=== PATIENT | female | born 1940 | race African-American/Black ===

== ENCOUNTER 2016-11-24 04:38 | Inpatient (IN) | payer MEDICARE, MEDICAID ==
[~2016-11-24] VITALS: Ht 165.1 cm; Wt 101.2 kg
[2016-11-24] VITALS (34 sets, daily range): BP systolic 92–199; BP diastolic 42–179
[~2016-11-24 04:38] MED LIST: ALBU18HF2 IH; ANAS1TAB7 PO; DILT300C25; DILT300C25 PO; FURO-152 PO; FURO20TA4 PO; GLIP10TA10; GLIP10TA10 PO; HYDR-4005 PO; IPRA12.94 INH; ISOS30TA11; LOSA25TA12; METF10002; METF10002 PO; METO100T9; NITR0.4T SL; NITR0.4T3 SL; PRAV20TA57 PO; RIVA1PAT2 TD; RIVA20TA PO; SENN-22 PO; SENN-39 PO
[2016-11-24 05:45] LABS: HEMATOCRIT. 44.8 % (36.0-48.0); HEMOGLOBIN. 14.3 g/dL (12.0-16.0); MEAN CORPUSCULAR HEMOGLOBIN 26.3 pg (28.0-32.0); MEAN CORPUSCULAR HGB CONC 31.8 g/dL (31.0-37.0); MEAN CORPUSCULAR VOLUME 82.7 fL (81.0-99.0); MEAN PLATELET VOLUME 9.2 fl (7.4-10.4); PLATELET 203 x1000/uL (130-400); RED BLOOD CELL COUNT 5.42 mill/uL (4.2-5.4); RED CELL DISTRIBUTION WIDTH 16.3 % (11.6-14.6)
[2016-11-24 05:47] LABS: DIFFERENTIAL COMMENT 1
[2016-11-24 05:53] LABS: INR 1.5; PROTHROMBIN TIME 15.2 sec
[2016-11-24 06:09] LABS: ALANINE AMINOTRANSFERASE 22 IU/L (13-61); ALBUMIN 3.7 g/dL (3.4-5.0); ANION GAP 19; CALCIUM 9.5 mg/dL (8.5-10.1); CARBON DIOXIDE 22 mEq/L (21-32); CHLORIDE 97 mEq/L (98-107); CREATINE KINASE 659 IU/L (26-192); INDEX HEMOLYSI 1 (1-3); INDEX ICTERIC 1 (1-4); INDEX LIPEMIC 1 (1-3); LACTIC ACID 3.6 mmol/L (0.4-2.0); UREA NITROGEN BLOOD 13 mg/dL (7-21); eGFR > 60 mL/min (>60)
[2016-11-24 06:52] LABS: AMMONIA < 10 uMol/L (<32); INDEX HEMOLYSI 1 (1-3)
[2016-11-24] MEDS ORDERED: VANCOMYCIN 1 G PREMIX 200 ML IV SCH (07:00)
[2016-11-24] MEDS ORDERED: PIPERACILLIN/TAZ 3.375G PREMIX 50 ML IV ONE (07:00)
[2016-11-24 07:15] LABS: PLATELET ESTIMATE NORMAL
[2016-11-24] MEDS ORDERED: SODIUM CHLORIDE 0.9% 1000ML BAG (SEPSIS BOLUS) IV ONE (07:30)
[2016-11-24] MEDS ORDERED: HEPARIN 25,000 UNITS PREMIX 500 ML IV PRN (07:30)
[2016-11-24] MEDS ORDERED: HEPARIN 5000 UNITS/ML VIAL IV SCH (07:30)
[2016-11-24 08:30] LABS: CLARITY URINE CLOUDY (CLEAR); COLOR URINE DARK YELLOW (YELLOW); GLUCOSE URINE NEGATIVE (NEGATIVE); KETONES URINE 1+ (NEGATIVE); LEUKOCYTE ESTERASE URINE 2+ (NEGATIVE); NITRITE URINE NEGATIVE (NEGATIVE); OCCULT BLOOD URINE 3+ (NEGATIVE); PH URINE 5.5 (4.5-8.0); PROTEIN URINE 1+ (NEGATIVE); SPECIFIC GRAVITY URINE 1.029 (1.005-1.030)
[2016-11-24 08:55] LABS: BACTERIA URINE 4+; SQUAMOUS EPITHELIAL CELL URINE RARE /lpf (RARE/1+); WBC URINE TNTC /hpf (0-2)
[2016-11-24 08:56] LABS: RBC URINE 15-25 /hpf (0-2)
[2016-11-24] MEDS ORDERED: CLONIDINE 0.1MG TABLET PO PRN ×2 (10:00→13:35)
[2016-11-24] MEDS ORDERED: NITROGLYCERIN OINT 1GM/INCH UDPKT TD STA (10:23)
[2016-11-24] MEDS ORDERED: HALOPERIDOL LACTATE 5MG/ML VIAL IM ONE (10:30)
[2016-11-24] MEDS ORDERED: FUROSEMIDE 40MG/4ML VIAL IVP ONE (10:30)
[2016-11-24] MEDS ORDERED: DILTIAZEM HCL 30MG TABLET PO SCH (12:00)
[2016-11-24] MEDS ORDERED: FUROSEMIDE 40MG/4ML VIAL IVP SCH (13:15)
[2016-11-24] MEDS ORDERED: DILTIAZEM HCL 5MG/ML 5ML VIAL IV NR (13:15)
[2016-11-24] MEDS ORDERED: FUROSEMIDE 40MG/4ML VIAL IVP NR (13:15)
[2016-11-24 13:31] LABS: BG BASE EXCESS -7.4 mmol/L (-2.0-2.0); BG CARBOXYHEMOGLOBIN 0.5 % (0.5-1.5); BG DEOXYHEMOGLOBIN 0.5 % (0.0-5.0); BG HCO3 ACT 18.1 mmol/L (22.0-26.0); BG METHEMOGLOBIN 0.3 % (0.0-1.5); BG OXYGEN SATURATION 99.5 % (92.0-98.5); BG OXYHEMOGLOBIN 98.7 % (94.0-97.0); BG PCO2 37.2 mmHg (35.0-45.0); BG PH 7.306 (7.350-7.450); BG PO2 226.5 mmHg (75.0-100.0); BG SAMPLE SITE RIGHT RADIAL; BG TOTAL HEMOGLOBIN 14.7 g/dL (12.0-18.0); BG VENT MODE MASK - NRB
[2016-11-24] MEDS ORDERED: POTASSIUM CHLORIDE 20 MEQ/PACKET PO SCH (13:35)
[2016-11-24] MEDS: NITROGLYCERIN OINT 1GM/INCH UDPKT TD SCH ×3 (13:39→21:39)
[2016-11-24] MEDS ORDERED: MAGNESIUM/ALUMINUM HYDROXIDE/SIMETHICONE 30ML UDC PO PRN (14:00)
[2016-11-24] MEDS ORDERED: GUAIFENESIN 200MG/10ML SUGAR FREE UDC PO PRN (14:00)
[2016-11-24] MEDS ORDERED: ACETAMINOPHEN 325MG TABLET PO PRN (14:00)
[2016-11-24] MEDS ORDERED: DIPHENHYDRAMINE 50MG/ML VIAL IV PRN (14:00)
[2016-11-24] MEDS ORDERED: DOCUSATE SODIUM 100MG CAPSULE PO PRN (14:00)
[2016-11-24] MEDS ORDERED: ONDANSETRON HCL 4MG/2ML VIAL IV PRN (14:00)
[2016-11-24 14:36] LABS: *AMPHETAMINES SCREEN URINE NEGATIVE (NEGATIVE); *BARBITURATES SCREEN URINE NEGATIVE (NEGATIVE); *BENZODIAZEPINES SCREEN URINE NEGATIVE (NEGATIVE); *COCAINE SCREEN URINE NEGATIVE (NEGATIVE); CANNABINOID URINE SCREEN NEGATIVE (NEGATIVE); ECSTASY MDMA SCREEN URINE NEGATIVE (NEGATIVE); METHADONE URINE SCREEN NEGATIVE (NEGATIVE); OPIATES URINE SCREEN PRESUMTIVE POSITIVE (NEGATIVE); PHENCYCLIDINE URINE SCREEN NEGATIVE (NEGATIVE)
[2016-11-24] MEDS: DILTIAZEM HCL 125 MG in DEXT 5% WATER 100 ML IV PRN (14:36)
[2016-11-24 14:46] LABS: CREATINE KINASE MB FRACTION 190.1 ng/mL (0.5-3.6)
[2016-11-24] MEDS: FUROSEMIDE 40MG/4ML VIAL IVP SCH (17:05)
[2016-11-24] MEDS: ENOXAPARIN 100MG/ML SYR SUBCUT SCH (17:05)
[2016-11-24] MEDS: ASPIRIN 81MG EC TABLET PO SCH (17:05)
[2016-11-24] MEDS: LEVOFLOXACIN 500MG PREMIX 100 ML IV SCH (17:06)
[2016-11-24 17:08] LABS: BG BASE EXCESS -4.5 mmol/L (-2.0-2.0); BG BILEVEL POS AIRWAY PRESSURE 15/5; BG CARBOXYHEMOGLOBIN 0.6 % (0.5-1.5); BG DEOXYHEMOGLOBIN 1.8 % (0.0-5.0); BG HCO3 ACT 19.8 mmol/L (22.0-26.0); BG METHEMOGLOBIN 0.3 % (0.0-1.5); BG OXYGEN SATURATION 98.2 % (92.0-98.5); BG OXYHEMOGLOBIN 97.3 % (94.0-97.0); BG PCO2 34.4 mmHg (35.0-45.0); BG PH 7.378 (7.350-7.450); BG PO2 109.4 mmHg (75.0-100.0); BG SAMPLE SITE RIGHT RADIAL; BG TOTAL HEMOGLOBIN 14.6 g/dL (12.0-18.0); BG VENT MODE MASK - BIPAP; BG VENT RATE 20 set
[2016-11-24] MEDS ORDERED: ASPIRIN 81MG EC TABLET PO SCH (18:00)
[2016-11-24] MEDS ORDERED: DEXTROSE 50% WATER 50ML SYRINGE IV PRN ×2 (19:30)
[2016-11-24] MEDS: BLOOD SUGAR DIAGNOSTIC STRIP TEST SCH (21:36)
[2016-11-24] MEDS: INSULIN LISPRO 100 UNITS/ML SUBCUT SCH (21:41)
[2016-11-25] VITALS (61 sets, daily range): BP systolic 56–220; BP diastolic 18–155
[2016-11-25] MEDS: NITROGLYCERIN OINT 1GM/INCH UDPKT TD SCH ×4 (01:47→17:39)
[2016-11-25] MEDS: DILTIAZEM HCL 125 MG in DEXT 5% WATER 100 ML IV PRN (04:31)
[2016-11-25] MEDS: FUROSEMIDE 40MG/4ML VIAL IVP SCH ×2 (05:46→17:39)
[2016-11-25] MEDS: ENOXAPARIN 100MG/ML SYR SUBCUT SCH (05:48)
[2016-11-25 05:51] LABS: BASOPHILS % 0.3 % (0.0-2.0); HEMATOCRIT. 43.6 % (36.0-48.0); HEMOGLOBIN. 13.8 g/dL (12.0-16.0); LYMPHOCYTES % 10.9 % (20.0-50.0); MEAN CORPUSCULAR HEMOGLOBIN 26.1 pg (28.0-32.0); MEAN CORPUSCULAR HGB CONC 31.7 g/dL (31.0-37.0); MEAN CORPUSCULAR VOLUME 82.2 fL (81.0-99.0); MEAN PLATELET VOLUME 9.9 fl (7.4-10.4); MONOCYTES % 7.9 % (2.0-8.0); NEUTROPHILS % 80.9 % (40.0-76.0); PLATELET 182 x1000/uL (130-400); RED CELL DISTRIBUTION WIDTH 15.6 % (11.6-14.6); WHITE BLOOD COUNT 16.4 x1000/uL (4.5-11.0)
[2016-11-25 05:52] LABS: BG BASE EXCESS -2.9 mmol/L (-2.0-2.0); BG CARBOXYHEMOGLOBIN 0.8 % (0.5-1.5); BG DEOXYHEMOGLOBIN 3.9 % (0.0-5.0); BG FRACTION INSPIRED OXYGEN 36; BG HCO3 ACT 21.4 mmol/L (22.0-26.0); BG METHEMOGLOBIN 0.5 % (0.0-1.5); BG OXYHEMOGLOBIN 94.8 % (94.0-97.0); BG PH 7.391 (7.350-7.450); BG PO2 83.8 mmHg (75.0-100.0); BG SAMPLE SITE RIGHT RADIAL; BG VENT MODE NASAL CANNULA
[2016-11-25 06:19] LABS: ALANINE AMINOTRANSFERASE 33 IU/L (13-61); ALBUMIN 2.9 g/dL (3.4-5.0); ANION GAP 17; CALCIUM 8.6 mg/dL (8.5-10.1); CARBON DIOXIDE 23 mEq/L (21-32); CHLORIDE 100 mEq/L (98-107); CREATINE KINASE MB FRACTION 115.5 ng/mL (0.5-3.6); HDL CHOLESTEROL 64 mg/dL (40-59); INDEX HEMOLYSI 1 (1-3); INDEX ICTERIC 1 (1-4); INDEX LIPEMIC 1 (1-3); LDL CHOLESTEROL 106 mg/dL (5-100); NT PRO B-TYPE NATRIURETIC PEP 14003 pg/mL (5-125); TRIGLYCERIDE 97 mg/dL (0-150); UREA NITROGEN BLOOD 16 mg/dL (7-21); eGFR > 60 mL/min (>60)
[2016-11-25 06:27] LABS: CREATINE KINASE 1179 IU/L (26-192)
[2016-11-25 07:50] LABS: MAGNESIUM 1.1 mg/dL (1.8-2.4)
[2016-11-25] MEDS ORDERED: MAGNESIUM 4 G PREMIX 100 ML IV SCH (08:30)
[2016-11-25] MEDS: INSULIN LISPRO 100 UNITS/ML SUBCUT SCH ×4 (08:43→21:57)
[2016-11-25] MEDS: ASPIRIN 81MG EC TABLET PO SCH (08:44)
[2016-11-25] MEDS: BLOOD SUGAR DIAGNOSTIC STRIP TEST SCH ×4 (08:44→21:52)
[2016-11-25] MEDS ORDERED: LOSARTAN POTASSIUM 25 MG TABLET PO SCH (10:00)
[2016-11-25] MEDS: IPRATROPIUM/ALBUTEROL 0.5-3(2.5)MG/3ML NEB HHN SCH ×3 (12:00→20:02)
[2016-11-25] MEDS ORDERED: KCL 20MEQ/100ML PREMIX 100 ML IV NR (12:30)
[2016-11-25] MEDS: LEVOFLOXACIN 500MG PREMIX 100 ML IV SCH (15:43)
[2016-11-25] MEDS ORDERED: NYSTATIN POWDER 15GM TOP SCH (17:00)
[2016-11-25] MEDS: ATORVASTATIN CALCIUM 20MG TABLET PO SCH (20:45)
[2016-11-25] MEDS: CARVEDILOL 3.125 MG TABLET PO SCH (20:45)
[2016-11-25] MEDS: NYSTATIN POWDER 15GM TOP SCH (20:46)
[2016-11-26] VITALS (42 sets, daily range): BP systolic 99–138; BP diastolic 46–97
[2016-11-26] MEDS: IPRATROPIUM/ALBUTEROL 0.5-3(2.5)MG/3ML NEB HHN SCH ×6 (00:24→20:12)
[2016-11-26] MEDS: NITROGLYCERIN OINT 1GM/INCH UDPKT TD SCH ×3 (01:10→17:45)
[2016-11-26] MEDS: DILTIAZEM HCL 125 MG in DEXT 5% WATER 100 ML IV PRN ×2 (01:10→17:51)
[2016-11-26 05:35] LABS: INR 1.2; PROTHROMBIN TIME 12.8 sec
[2016-11-26 05:44] LABS: ALANINE AMINOTRANSFERASE 31 IU/L (13-61); ALBUMIN 2.6 g/dL (3.4-5.0); ANION GAP 15; CALCIUM 8.6 mg/dL (8.5-10.1); CARBON DIOXIDE 27 mEq/L (21-32); CHLORIDE 100 mEq/L (98-107); CREATINE KINASE 517 IU/L (26-192); CREATINE KINASE MB FRACTION 22.9 ng/mL (0.5-3.6); INDEX HEMOLYSI 1 (1-3); INDEX ICTERIC 1 (1-4); INDEX LIPEMIC 1 (1-3); NT PRO B-TYPE NATRIURETIC PEP 9130 pg/mL (5-125); UREA NITROGEN BLOOD 20 mg/dL (7-21); eGFR > 60 mL/min (>60)
[2016-11-26] MEDS: BLOOD SUGAR DIAGNOSTIC STRIP TEST SCH ×4 (08:19→20:58)
[2016-11-26] MEDS: ENOXAPARIN 100MG/ML SYR SUBCUT SCH (08:28)
[2016-11-26] MEDS: FUROSEMIDE 40MG/4ML VIAL IVP SCH ×2 (08:29→21:16)
[2016-11-26] MEDS: INSULIN LISPRO 100 UNITS/ML SUBCUT SCH ×4 (08:29→21:20)
[2016-11-26] MEDS: ASPIRIN 81MG EC TABLET PO SCH (08:30)
[2016-11-26] MEDS: CARVEDILOL 3.125 MG TABLET PO SCH ×2 (08:30→21:16)
[2016-11-26] MEDS: NYSTATIN POWDER 15GM TOP SCH ×2 (08:32→21:29)
[2016-11-26 09:14] LABS: HEMATOCRIT. 39.6 % (36.0-48.0); HEMOGLOBIN. 12.8 g/dL (12.0-16.0); MEAN CORPUSCULAR HEMOGLOBIN 26.3 pg (28.0-32.0); MEAN CORPUSCULAR HGB CONC 32.2 g/dL (31.0-37.0); MEAN CORPUSCULAR VOLUME 81.8 fL (81.0-99.0); MEAN PLATELET VOLUME 9.9 fl (7.4-10.4); PLATELET 190 x1000/uL (130-400); RED BLOOD CELL COUNT 4.85 mill/uL (4.2-5.4); RED CELL DISTRIBUTION WIDTH 15.9 % (11.6-14.6); WHITE BLOOD COUNT 17.4 x1000/uL (4.5-11.0)
[2016-11-26 09:18] LABS: DIFFERENTIAL COMMENT 1
[2016-11-26 09:43] LABS: PLATELET ESTIMATE NORMAL
[2016-11-26] MEDS ORDERED: LORAZEPAM 2MG/ML CPJ IV PRN (12:30)
[2016-11-26] MEDS: MEGESTROL ACETATE 400 MG/10 ML UDC PO SCH (12:41)
[2016-11-26] MEDS ORDERED: LORAZEPAM 0.5MG TABLET PO NR (12:45)
[2016-11-26] MEDS ORDERED: MIDAZOLAM HCL 5 MG/5 ML VIAL IV PRN (12:45)
[2016-11-26] MEDS ORDERED: CEPHALEXIN 500MG CAPSULE PO SCH (14:45)
[2016-11-26 15:24] LABS: CLARITY URINE CLEAR (CLEAR); COLOR URINE YELLOW (YELLOW); GLUCOSE URINE NEGATIVE (NEGATIVE); KETONES URINE NEGATIVE (NEGATIVE); LEUKOCYTE ESTERASE URINE TRACE (NEGATIVE); NITRITE URINE NEGATIVE (NEGATIVE); OCCULT BLOOD URINE 3+ (NEGATIVE); PH URINE 5.5 (4.5-8.0); PROTEIN URINE NEGATIVE (NEGATIVE); SPECIFIC GRAVITY URINE 1.012 (1.005-1.030); UROBILINOGEN URINE 0.2 E.U./dL (0.2-1.0)
[2016-11-26 16:40] LABS: BACTERIA URINE 1+; HYALINE CASTS URINE 0-5 /lpf; SQUAMOUS EPITHELIAL CELL URINE NONE SEEN /lpf (RARE/1+); WBC URINE 0-2 /hpf (0-2)
[2016-11-26] MEDS: CEFEPIME 1,000 MG in DEXTROSE 5% WATER 50 ML IV SCH (16:52)
[2016-11-26] MEDS: ATORVASTATIN CALCIUM 20MG TABLET PO SCH (21:16)
[2016-11-27] VITALS (47 sets, daily range): BP systolic 91–202; BP diastolic 39–133
[2016-11-27] MEDS: IPRATROPIUM/ALBUTEROL 0.5-3(2.5)MG/3ML NEB HHN SCH ×6 (00:14→19:56)
[2016-11-27] MEDS: NITROGLYCERIN OINT 1GM/INCH UDPKT TD SCH ×3 (01:52→18:22)
[2016-11-27] MEDS: CEFEPIME 1,000 MG in DEXTROSE 5% WATER 50 ML IV SCH ×2 (03:59→17:05)
[2016-11-27 05:30] LABS: BASOPHILS % 0.5 % (0.0-2.0); EOSINOPHILS % 0.9 % (0.0-5.0); HEMATOCRIT. 38.8 % (36.0-48.0); HEMOGLOBIN. 12.4 g/dL (12.0-16.0); LYMPHOCYTES % 12.8 % (20.0-50.0); MEAN CORPUSCULAR HEMOGLOBIN 26.3 pg (28.0-32.0); MEAN CORPUSCULAR HGB CONC 31.9 g/dL (31.0-37.0); MEAN CORPUSCULAR VOLUME 82.5 fL (81.0-99.0); MEAN PLATELET VOLUME 9.7 fl (7.4-10.4); MONOCYTES % 7.7 % (2.0-8.0); NEUTROPHILS % 78.1 % (40.0-76.0); PLATELET 170 x1000/uL (130-400); RED CELL DISTRIBUTION WIDTH 15.4 % (11.6-14.6); WHITE BLOOD COUNT 12.3 x1000/uL (4.5-11.0)
[2016-11-27 06:37] LABS: CHLORIDE 101 mEq/L (98-107); INDEX HEMOLYSI 1 (1-3); INDEX ICTERIC 1 (1-4); INDEX LIPEMIC 1 (1-3)
[2016-11-27 07:05] LABS: ALANINE AMINOTRANSFERASE 25 IU/L (13-61); ALBUMIN 2.4 g/dL (3.4-5.0); ANION GAP 16; CALCIUM 8.4 mg/dL (8.5-10.1); CARBON DIOXIDE 25 mEq/L (21-32); MAGNESIUM 1.6 mg/dL (1.8-2.4); NT PRO B-TYPE NATRIURETIC PEP 7402 pg/mL (5-125); UREA NITROGEN BLOOD 17 mg/dL (7-21); eGFR > 60 mL/min (>60)
[2016-11-27] MEDS: DILTIAZEM HCL 125 MG in DEXT 5% WATER 100 ML IV PRN (07:41)
[2016-11-27] MEDS: ENOXAPARIN 100MG/ML SYR SUBCUT SCH ×2 (08:17→20:33)
[2016-11-27] MEDS: MEGESTROL ACETATE 400 MG/10 ML UDC PO SCH (08:17)
[2016-11-27] MEDS: ASPIRIN 81MG EC TABLET PO SCH (08:18)
[2016-11-27] MEDS: CARVEDILOL 3.125 MG TABLET PO SCH ×2 (08:18→20:34)
[2016-11-27] MEDS: BLOOD SUGAR DIAGNOSTIC STRIP TEST SCH ×4 (08:18→20:12)
[2016-11-27] MEDS: INSULIN LISPRO 100 UNITS/ML SUBCUT SCH ×4 (08:25→20:36)
[2016-11-27] MEDS: NYSTATIN POWDER 15GM TOP SCH ×2 (08:25→20:36)
[2016-11-27] MEDS: FUROSEMIDE 40MG/4ML VIAL IVP SCH ×3 (09:00→20:32)
[2016-11-27] MEDS ORDERED: POTASSIUM CHLORIDE 20 MEQ/PACKET PO SCH (09:45)
[2016-11-27] MEDS ORDERED: MAGNESIUM 1 G PREMIX 100 ML IV ONE (09:45)
[2016-11-27] MEDS ORDERED: MAGNESIUM 2 G PREMIX 50 ML IV ONE (09:45)
[2016-11-27] MEDS ORDERED: POTASSIUM CHLORIDE 20MEQ TABLET SR PO NR (09:45)
[2016-11-27] MEDS ORDERED: DILTIAZEM HCL 5MG/ML 5ML VIAL IV PRN (09:45)
[2016-11-27] MEDS ORDERED: MAGNESIUM 2 G PREMIX 50 ML IV SCH (11:00)
[2016-11-27] MEDS ORDERED: POTASSIUM CHLORIDE INJ 40 MEQ in DEXT 5% WATER 250 ML IV SCH (11:00)
[2016-11-27] MEDS: DILTIAZEM HCL 90MG TABLET PO SCH ×3 (12:00→18:22)
[2016-11-27] MEDS ORDERED: WARFARIN SODIUM 7.5MG TABLET PO SCH (18:00)
[2016-11-27] MEDS: DONEPEZIL HCL 10MG TABLET PO SCH (18:01)
[2016-11-27] MEDS: ATORVASTATIN CALCIUM 20MG TABLET PO SCH (20:33)
[2016-11-28] VITALS (32 sets, daily range): BP systolic 90–145; BP diastolic 31–99
[2016-11-28] MEDS: IPRATROPIUM/ALBUTEROL 0.5-3(2.5)MG/3ML NEB HHN SCH ×6 (00:02→20:32)
[2016-11-28] MEDS: DILTIAZEM HCL 90MG TABLET PO SCH ×4 (00:43→18:03)
[2016-11-28] MEDS: NITROGLYCERIN OINT 1GM/INCH UDPKT TD SCH ×3 (02:04→18:03)
[2016-11-28] MEDS: CEFEPIME 1,000 MG in DEXTROSE 5% WATER 50 ML IV SCH ×2 (03:17→16:57)
[2016-11-28 05:44] LABS: BASOPHILS % 0.6 % (0.0-2.0); EOSINOPHILS % 1.6 % (0.0-5.0); HEMATOCRIT. 38.2 % (36.0-48.0); HEMOGLOBIN. 12.3 g/dL (12.0-16.0); LYMPHOCYTES % 13.3 % (20.0-50.0); MEAN CORPUSCULAR HEMOGLOBIN 26.2 pg (28.0-32.0); MEAN CORPUSCULAR HGB CONC 32.1 g/dL (31.0-37.0); MEAN CORPUSCULAR VOLUME 81.6 fL (81.0-99.0); MEAN PLATELET VOLUME 10.1 fl (7.4-10.4); MONOCYTES % 8.4 % (2.0-8.0); NEUTROPHILS % 76.1 % (40.0-76.0); PLATELET 182 x1000/uL (130-400); RED BLOOD CELL COUNT 4.68 mill/uL (4.2-5.4); RED CELL DISTRIBUTION WIDTH 15.8 % (11.6-14.6); WHITE BLOOD COUNT 12.9 x1000/uL (4.5-11.0)
[2016-11-28 05:46] LABS: INR 1.3; PROTHROMBIN TIME 13.2 sec
[2016-11-28 06:06] LABS: ALANINE AMINOTRANSFERASE 26 IU/L (13-61); ALBUMIN 2.6 g/dL (3.4-5.0); ANION GAP 15; CALCIUM 8.6 mg/dL (8.5-10.1); CARBON DIOXIDE 28 mEq/L (21-32); CHLORIDE 100 mEq/L (98-107); INDEX HEMOLYSI 1 (1-3); INDEX ICTERIC 1 (1-4); INDEX LIPEMIC 1 (1-3); UREA NITROGEN BLOOD 17 mg/dL (7-21); eGFR > 60 mL/min (>60)
[2016-11-28 06:24] LABS: MAGNESIUM 1.8 mg/dL (1.8-2.4)
[2016-11-28] MEDS: BLOOD SUGAR DIAGNOSTIC STRIP TEST SCH ×4 (07:50→21:14)
[2016-11-28] MEDS: FUROSEMIDE 40MG/4ML VIAL IVP SCH ×2 (08:39→21:22)
[2016-11-28] MEDS: MEGESTROL ACETATE 400 MG/10 ML UDC PO SCH (08:39)
[2016-11-28] MEDS: ENOXAPARIN 100MG/ML SYR SUBCUT SCH ×2 (08:42→21:21)
[2016-11-28] MEDS: PANTOPRAZOLE SODIUM 40 MG/VIAL IV SCH (08:42)
[2016-11-28] MEDS: DONEPEZIL HCL 10MG TABLET PO SCH (08:42)
[2016-11-28] MEDS: CARVEDILOL 3.125 MG TABLET PO SCH ×2 (08:42→21:22)
[2016-11-28] MEDS: INSULIN LISPRO 100 UNITS/ML SUBCUT SCH ×4 (08:43→21:23)
[2016-11-28] MEDS: ASPIRIN 81MG EC TABLET PO SCH (08:45)
[2016-11-28] MEDS: NYSTATIN POWDER 15GM TOP SCH ×2 (08:58→21:24)
[2016-11-28] MEDS: POTASSIUM CHLORIDE 20MEQ TABLET SR PO SCH (10:57)
[2016-11-28] MEDS ORDERED: WARFARIN SODIUM 7.5MG TABLET PO SCH (18:00)
[2016-11-28] MEDS: ATORVASTATIN CALCIUM 20MG TABLET PO SCH (21:22)
[2016-11-29] VITALS (41 sets, daily range): BP systolic 101–159; BP diastolic 21–89
[2016-11-29] MEDS: DILTIAZEM HCL 90MG TABLET PO SCH ×4 (00:26→18:32)
[2016-11-29] MEDS: IPRATROPIUM/ALBUTEROL 0.5-3(2.5)MG/3ML NEB HHN SCH ×6 (00:47→21:04)
[2016-11-29] MEDS: NITROGLYCERIN OINT 1GM/INCH UDPKT TD SCH ×4 (02:38→18:32)
[2016-11-29] MEDS: CEFEPIME 1,000 MG in DEXTROSE 5% WATER 50 ML IV SCH ×2 (04:06→16:16)
[2016-11-29 06:16] LABS: INR 1.7; PROTHROMBIN TIME 17.4 sec
[2016-11-29] MEDS: BLOOD SUGAR DIAGNOSTIC STRIP TEST SCH ×4 (08:12→21:10)
[2016-11-29] MEDS: MEGESTROL ACETATE 400 MG/10 ML UDC PO SCH (08:44)
[2016-11-29] MEDS: INSULIN LISPRO 100 UNITS/ML SUBCUT SCH ×4 (08:46→21:42)
[2016-11-29] MEDS: DONEPEZIL HCL 10MG TABLET PO SCH (08:47)
[2016-11-29] MEDS: CARVEDILOL 3.125 MG TABLET PO SCH ×2 (08:47→21:10)
[2016-11-29] MEDS: ASPIRIN 81MG EC TABLET PO SCH (08:47)
[2016-11-29] MEDS: POTASSIUM CHLORIDE 20MEQ TABLET SR PO SCH (08:47)
[2016-11-29] MEDS: ENOXAPARIN 100MG/ML SYR SUBCUT SCH ×2 (08:47→21:11)
[2016-11-29] MEDS: PANTOPRAZOLE SODIUM 40 MG/VIAL IV SCH (08:48)
[2016-11-29] MEDS: FUROSEMIDE 40MG/4ML VIAL IVP SCH ×2 (08:48→21:10)
[2016-11-29] MEDS: NYSTATIN POWDER 15GM TOP SCH ×2 (08:49→21:13)
[2016-11-29 09:08] LABS: BASOPHILS % 0.7 % (0.0-2.0); HEMATOCRIT. 40.2 % (36.0-48.0); HEMOGLOBIN. 12.8 g/dL (12.0-16.0); LYMPHOCYTES % 16.8 % (20.0-50.0); MEAN CORPUSCULAR HGB CONC 31.9 g/dL (31.0-37.0); MEAN CORPUSCULAR VOLUME 81.5 fL (81.0-99.0); MONOCYTES % 9.7 % (2.0-8.0); NEUTROPHILS % 70.8 % (40.0-76.0); PLATELET 185 x1000/uL (130-400); RED BLOOD CELL COUNT 4.93 mill/uL (4.2-5.4); RED CELL DISTRIBUTION WIDTH 15.8 % (11.6-14.6); WHITE BLOOD COUNT 11.2 x1000/uL (4.5-11.0)
[2016-11-29 09:23] LABS: ANION GAP 11; CALCIUM 8.7 mg/dL (8.5-10.1); CARBON DIOXIDE 31 mEq/L (21-32); CHLORIDE 100 mEq/L (98-107); INDEX HEMOLYSI 1 (1-3); INDEX ICTERIC 1 (1-4); INDEX LIPEMIC 1 (1-3); UREA NITROGEN BLOOD 14 mg/dL (7-21); eGFR > 60 mL/min (>60)
[2016-11-29] MEDS ORDERED: POTASSIUM CHLORIDE 20MEQ TABLET SR PO ONE (15:15)
[2016-11-29] MEDS ORDERED: POTASSIUM CHLORIDE 20MEQ TABLET SR PO NR (15:30)
[2016-11-29] MEDS ORDERED: WARFARIN SODIUM 5MG TABLET PO SCH (18:00)
[2016-11-29] MEDS: ATORVASTATIN CALCIUM 20MG TABLET PO SCH (21:10)
[2016-11-30] VITALS (12 sets, daily range): BP systolic 107–155; BP diastolic 41–91
[2016-11-30] MEDS: DILTIAZEM HCL 90MG TABLET PO SCH ×4 (00:24→17:11)
[2016-11-30] MEDS: IPRATROPIUM/ALBUTEROL 0.5-3(2.5)MG/3ML NEB HHN SCH ×4 (00:29→12:36)
[2016-11-30] MEDS: NITROGLYCERIN OINT 1GM/INCH UDPKT TD SCH ×3 (02:00→17:10)
[2016-11-30] MEDS: CEFEPIME 1,000 MG in DEXTROSE 5% WATER 50 ML IV SCH ×2 (03:55→15:36)
[2016-11-30] MEDS: BLOOD SUGAR DIAGNOSTIC STRIP TEST SCH ×3 (05:57→16:33)
[2016-11-30 05:59] LABS: INR 2.3; PROTHROMBIN TIME 23.6 sec
[2016-11-30 06:01] LABS: BASOPHILS % 0.7 % (0.0-2.0); EOSINOPHILS % 2.2 % (0.0-5.0); HEMATOCRIT. 39.7 % (36.0-48.0); HEMOGLOBIN. 12.8 g/dL (12.0-16.0); LYMPHOCYTES % 14.7 % (20.0-50.0); MEAN CORPUSCULAR HEMOGLOBIN 26.3 pg (28.0-32.0); MEAN CORPUSCULAR HGB CONC 32.3 g/dL (31.0-37.0); MEAN CORPUSCULAR VOLUME 81.5 fL (81.0-99.0); MEAN PLATELET VOLUME 9.7 fl (7.4-10.4); MONOCYTES % 10.6 % (2.0-8.0); NEUTROPHILS % 71.8 % (40.0-76.0); PLATELET 202 x1000/uL (130-400); RED BLOOD CELL COUNT 4.88 mill/uL (4.2-5.4); RED CELL DISTRIBUTION WIDTH 15.8 % (11.6-14.6); WHITE BLOOD COUNT 11.7 x1000/uL (4.5-11.0)
[2016-11-30 06:23] LABS: ALANINE AMINOTRANSFERASE 23 IU/L (13-61); ALBUMIN 2.7 g/dL (3.4-5.0); ANION GAP 14; CALCIUM 8.8 mg/dL (8.5-10.1); CARBON DIOXIDE 29 mEq/L (21-32); CHLORIDE 100 mEq/L (98-107); INDEX HEMOLYSI 1 (1-3); INDEX ICTERIC 1 (1-4); INDEX LIPEMIC 1 (1-3); MAGNESIUM 1.6 mg/dL (1.8-2.4); UREA NITROGEN BLOOD 13 mg/dL (7-21)
[2016-11-30 06:25] LABS: eGFR > 60 mL/min (>60)
[2016-11-30] MEDS: ASPIRIN 81MG EC TABLET PO SCH (09:00)
[2016-11-30] MEDS: PANTOPRAZOLE SODIUM 40 MG/VIAL IV SCH (09:05)
[2016-11-30] MEDS: DONEPEZIL HCL 10MG TABLET PO SCH (09:05)
[2016-11-30] MEDS: FUROSEMIDE 40MG/4ML VIAL IVP SCH (09:05)
[2016-11-30] MEDS: MEGESTROL ACETATE 400 MG/10 ML UDC PO SCH (09:05)
[2016-11-30] MEDS: INSULIN LISPRO 100 UNITS/ML SUBCUT SCH ×3 (09:05→17:09)
[2016-11-30] MEDS: POTASSIUM CHLORIDE 20MEQ TABLET SR PO SCH (09:05)
[2016-11-30] MEDS: CARVEDILOL 3.125 MG TABLET PO SCH (09:06)
[2016-11-30] MEDS: NYSTATIN POWDER 15GM TOP SCH (09:08)
[2016-11-30] MEDS ORDERED: POTASSIUM CHLORIDE 20MEQ TABLET SR PO NR (10:30)
[2016-11-30] MEDS ORDERED: MAGNESIUM 2 G PREMIX 50 ML IV NR (11:30)
[2016-11-30] MEDS ORDERED: WARFARIN SODIUM 5MG TABLET PO NR (18:00)
[2016-12-01] MEDS ORDERED: FAMOTIDINE 20MG/2ML VIAL IV SCH (09:00)
== END 2016-11-30 18:30 | DRG 871 ==
LOC: ER 04:39 → CVICU 09:15 → 3WST 11-29 19:24
PROVIDERS: ADMIT Hospitalist; ATTEND Hospitalist
PROC: 02HV33Z Insertion of Infusion Device into Superior Vena Cava, Percutaneous Approach (ICD-10-PCS; principal; 2016-11-26)
PROC: B548ZZA Ultrasonography of Superior Vena Cava, Guidance (ICD-10-PCS; 2016-11-26)
DX: A41.9 Sepsis, unspecified organism (principal); G93.40 Encephalopathy, unspecified; I21.4 Non-ST elevation (NSTEMI) myocardial infarction; I50.23 Acute on chronic systolic (congestive) heart failure; I63.511 Cerebral infarction due to unspecified occlusion or stenosis of right middle cerebral artery; J18.9 Pneumonia, unspecified organism; E87.2 Acidosis; I42.0 Dilated cardiomyopathy; J44.0 Chronic obstructive pulmonary disease with (acute) lower respiratory infection; J84.9 Interstitial pulmonary disease, unspecified; N39.0 Urinary tract infection, site not specified; R41.4 Neurologic neglect syndrome; I48.1 Persistent atrial fibrillation; B96.20 Unspecified Escherichia coli [E. coli] as the cause of diseases classified elsewhere; E11.9 Type 2 diabetes mellitus without complications; E78.00 Pure hypercholesterolemia, unspecified; E78.5 Hyperlipidemia, unspecified; E83.42 Hypomagnesemia; I11.0 Hypertensive heart disease with heart failure; I25.10 Atherosclerotic heart disease of native coronary artery without angina pectoris; E66.01 Morbid (severe) obesity due to excess calories; W19.XXXA Unspecified fall, initial encounter; Z79.01 Long term (current) use of anticoagulants; Z85.3 Personal history of malignant neoplasm of breast; Z86.73 Personal history of transient ischemic attack (TIA), and cerebral infarction without residual deficits; Z79.899 Other long term (current) drug therapy; Z68.37 Body mass index [BMI] 37.0-37.9, adult
CPT/HCPCS: 36415; 36569; 36600; 51702; 70450; 70544; 70551; 71010; 72170; 76937; 80048; 80053; 80061; 80305; 81001; 82140; 82375; 82550; 82553; 82805; 82962; 83036; 83605; 83735; 83880; 84132; 84443; 84484; 85025; 85379; 85610; 85651; 85730; 86850; 86900; 87040; 87077; 87086; 87186; 92610; 93005; 93306; 93880; 93970; 94640; 94660; 96365; 96366; 96367; 96368; 97110; 97162; 97167; 97530; 97535; 99285; A6261; C1725; C9113; J0692; J1630; J1644; J1650; J1815; J1940; J1956; J2060; J2543; J3370; J3475; J3480; J3490; J7030; J7040; J7050; J7060; J7620

== ENCOUNTER 2016-11-30 18:36 | Inpatient (IN) | payer MEDICARE, MEDICAID ==
[~2016-11-30] VITALS: Ht 165.1 cm; Wt 101.2 kg
[~2016-11-30 18:36] MED LIST changes: -DILT300C25; -FURO-152 PO; -GLIP10TA10; -METF10002; -NITR0.4T SL; -SENN-22 PO
[2016-11-30 20:00] VITALS: BP 115/69
[2016-11-30 20:30] VITALS: BP 115/69
[2016-11-30] MEDS ORDERED: CLONIDINE 0.1MG TABLET PO PRN (20:30)
[2016-11-30] MEDS ORDERED: ONDANSETRON HCL 4MG/2ML VIAL IV PRN (20:30)
[2016-11-30] MEDS ORDERED: MAGNESIUM/ALUMINUM HYDROXIDE/SIMETHICONE 30ML UDC PO PRN (20:30)
[2016-11-30] MEDS ORDERED: DOCUSATE SODIUM 100MG CAPSULE PO PRN (20:30)
[2016-11-30] MEDS ORDERED: DIPHENHYDRAMINE 50MG/ML VIAL IV PRN (20:30)
[2016-11-30] MEDS ORDERED: DEXTROSE 50% WATER 50ML SYRINGE IV PRN (20:30)
[2016-11-30] MEDS ORDERED: FUROSEMIDE 40MG/4ML VIAL IVP SCH (21:00)
[2016-11-30] MEDS ORDERED: FAMOTIDINE 20MG/2ML VIAL IV SCH (21:00)
[2016-11-30] MEDS: ATORVASTATIN CALCIUM 20MG TABLET PO SCH (21:27)
[2016-11-30] MEDS: CARVEDILOL 3.125 MG TABLET PO SCH (21:28)
[2016-11-30] MEDS: BLOOD SUGAR DIAGNOSTIC STRIP TEST SCH (21:28)
[2016-11-30] MEDS: INSULIN LISPRO 100 UNITS/ML SUBCUT SCH (21:42)
[2016-11-30] MEDS: NYSTATIN POWDER 15GM TOP SCH (21:50)
[2016-11-30] MEDS: NITROGLYCERIN OINT 1GM/INCH UDPKT TD SCH (21:52)
[2016-12-01] MEDS: DILTIAZEM HCL 90MG TABLET PO SCH ×6 (00:11→23:45)
[2016-12-01] MEDS: GUAIFENESIN 200MG/10ML SUGAR FREE UDC PO PRN ×3 (01:25→20:41)
[2016-12-01] MEDS: CEFEPIME 1,000 MG in DEXTROSE 5% WATER 50 ML IV SCH ×2 (05:05→16:38)
[2016-12-01] MEDS: BLOOD SUGAR DIAGNOSTIC STRIP TEST SCH ×4 (05:43→21:00)
[2016-12-01] MEDS: NITROGLYCERIN OINT 1GM/INCH UDPKT TD SCH ×3 (06:03→23:45)
[2016-12-01] MEDS: INSULIN LISPRO 100 UNITS/ML SUBCUT SCH ×4 (06:15→21:00)
[2016-12-01] MEDS: ASPIRIN 81MG EC TABLET PO SCH ×2 (09:00→12:12)
[2016-12-01] MEDS: MEGESTROL ACETATE 400 MG/10 ML UDC PO SCH (09:42)
[2016-12-01] MEDS: FAMOTIDINE 20MG TABLET PO SCH ×2 (09:44→21:00)
[2016-12-01] MEDS: FUROSEMIDE 40MG TABLET PO SCH ×2 (09:45→20:32)
[2016-12-01] MEDS: DONEPEZIL HCL 10MG TABLET PO SCH (09:48)
[2016-12-01] MEDS: POTASSIUM CHLORIDE 20MEQ TABLET SR PO SCH (09:50)
[2016-12-01] MEDS: CARVEDILOL 3.125 MG TABLET PO SCH ×2 (09:50→20:32)
[2016-12-01] MEDS: NYSTATIN POWDER 15GM TOP SCH ×2 (09:52→23:45)
[2016-12-01 12:21] LABS: HEMATOCRIT. 41.8 % (36.0-48.0); HEMOGLOBIN. 13.3 g/dL (12.0-16.0); MEAN CORPUSCULAR HEMOGLOBIN 26.2 pg (28.0-32.0); MEAN CORPUSCULAR HGB CONC 31.8 g/dL (31.0-37.0); MEAN CORPUSCULAR VOLUME 82.6 fL (81.0-99.0); MEAN PLATELET VOLUME 9.9 fl (7.4-10.4); PLATELET 187 x1000/uL (130-400); RED BLOOD CELL COUNT 5.06 mill/uL (4.2-5.4); RED CELL DISTRIBUTION WIDTH 15.7 % (11.6-14.6)
[2016-12-01 12:23] LABS: CHLORIDE 100 mEq/L (98-107); INDEX HEMOLYSI 1 (1-3); INDEX ICTERIC 1 (1-4); INDEX LIPEMIC 1 (1-3)
[2016-12-01 12:27] LABS: AMMONIA 19 uMol/L (<32)
[2016-12-01 12:29] LABS: DIFFERENTIAL COMMENT 1
[2016-12-01 12:31] LABS: ALANINE AMINOTRANSFERASE 27 IU/L (13-61); ALBUMIN 2.6 g/dL (3.4-5.0); ANION GAP 10; CALCIUM 8.8 mg/dL (8.5-10.1); CARBON DIOXIDE 33 mEq/L (21-32); MAGNESIUM 1.9 mg/dL (1.8-2.4); UREA NITROGEN BLOOD 13 mg/dL (7-21); eGFR > 60 mL/min (>60)
[2016-12-01 16:01] LABS: INR 2.3; PROTHROMBIN TIME 23.4 sec
[2016-12-01 17:23] LABS: PLATELET ESTIMATE NORMAL
[2016-12-01] MEDS ORDERED: WARFARIN SODIUM 7.5MG TABLET PO NR (18:00)
[2016-12-01] MEDS: ATORVASTATIN CALCIUM 20MG TABLET PO SCH (20:32)
[2016-12-01] MEDS ORDERED: NYSTATIN POWDER 15GM TOP SCH (21:30)
[2016-12-02] MEDS: CEFEPIME 1,000 MG in DEXTROSE 5% WATER 50 ML IV SCH ×2 (03:29→15:20)
[2016-12-02 06:00] VITALS: BP 124/91
[2016-12-02] MEDS: BLOOD SUGAR DIAGNOSTIC STRIP TEST SCH ×4 (06:41→21:00)
[2016-12-02] MEDS: NITROGLYCERIN OINT 1GM/INCH UDPKT TD SCH ×3 (06:48→22:06)
[2016-12-02] MEDS: DILTIAZEM HCL 90MG TABLET PO SCH ×3 (06:48→17:51)
[2016-12-02] MEDS: NYSTATIN POWDER 15GM TOP SCH ×3 (06:49→22:06)
[2016-12-02 06:55] LABS: INR 2.5; PROTHROMBIN TIME 26.1 sec
[2016-12-02] MEDS: INSULIN LISPRO 100 UNITS/ML SUBCUT SCH ×4 (06:59→22:32)
[2016-12-02 08:00] VITALS: BP 139/68
[2016-12-02] MEDS: ASPIRIN 81MG EC TABLET PO SCH (09:10)
[2016-12-02] MEDS: POTASSIUM CHLORIDE 20MEQ TABLET SR PO SCH (09:10)
[2016-12-02] MEDS: DONEPEZIL HCL 10MG TABLET PO SCH (09:10)
[2016-12-02] MEDS: FUROSEMIDE 40MG TABLET PO SCH ×2 (09:10→22:05)
[2016-12-02] MEDS: MEGESTROL ACETATE 400 MG/10 ML UDC PO SCH (09:10)
[2016-12-02] MEDS: FAMOTIDINE 20MG TABLET PO SCH ×2 (09:10→22:05)
[2016-12-02] MEDS: CARVEDILOL 3.125 MG TABLET PO SCH ×2 (09:11→22:05)
[2016-12-02] MEDS: ACETAMINOPHEN 325MG TABLET PO PRN (10:13)
[2016-12-02] MEDS ORDERED: WARFARIN SODIUM 5MG TABLET PO SCH (18:00)
[2016-12-02 20:00] VITALS: BP 122/79
[2016-12-02] MEDS: ATORVASTATIN CALCIUM 20MG TABLET PO SCH (22:05)
[2016-12-03] MEDS: CEFEPIME 1,000 MG in DEXTROSE 5% WATER 50 ML IV SCH ×2 (03:57→15:07)
[2016-12-03] MEDS: INSULIN LISPRO 100 UNITS/ML SUBCUT SCH ×4 (06:37→21:00)
[2016-12-03 06:39] LABS: INR 2.5; PROTHROMBIN TIME 26.3 sec
[2016-12-03] MEDS: NYSTATIN POWDER 15GM TOP SCH ×2 (06:41→15:00)
[2016-12-03] MEDS: NITROGLYCERIN OINT 1GM/INCH UDPKT TD SCH ×2 (06:42→15:00)
[2016-12-03] MEDS: BLOOD SUGAR DIAGNOSTIC STRIP TEST SCH ×4 (06:42→21:00)
[2016-12-03] MEDS: DILTIAZEM HCL 90MG TABLET PO SCH ×4 (06:42→18:16)
[2016-12-03 07:49] LABS: BASOPHILS % 0.5 % (0.0-2.0); LYMPHOCYTES % 15.6 % (20.0-50.0); MEAN CORPUSCULAR HEMOGLOBIN 26.4 pg (28.0-32.0); MEAN CORPUSCULAR HGB CONC 32.4 g/dL (31.0-37.0); MEAN CORPUSCULAR VOLUME 81.6 fL (81.0-99.0); MEAN PLATELET VOLUME 9.7 fl (7.4-10.4); MONOCYTES % 12.1 % (2.0-8.0); NEUTROPHILS % 69.8 % (40.0-76.0); PLATELET 204 x1000/uL (130-400); RED BLOOD CELL COUNT 4.91 mill/uL (4.2-5.4); RED CELL DISTRIBUTION WIDTH 15.9 % (11.6-14.6); WHITE BLOOD COUNT 10.7 x1000/uL (4.5-11.0)
[2016-12-03 08:00] VITALS: BP 123/75
[2016-12-03] MEDS: FAMOTIDINE 20MG TABLET PO SCH ×2 (08:29→22:09)
[2016-12-03] MEDS: FUROSEMIDE 40MG TABLET PO SCH ×2 (08:30→22:09)
[2016-12-03] MEDS: POTASSIUM CHLORIDE 20MEQ TABLET SR PO SCH (08:30)
[2016-12-03] MEDS: CARVEDILOL 3.125 MG TABLET PO SCH ×2 (08:30→22:20)
[2016-12-03] MEDS: ASPIRIN 81MG EC TABLET PO SCH (08:30)
[2016-12-03] MEDS: MEGESTROL ACETATE 400 MG/10 ML UDC PO SCH (08:30)
[2016-12-03] MEDS: DONEPEZIL HCL 10MG TABLET PO SCH (08:30)
[2016-12-03] MEDS: ACETAMINOPHEN 325MG TABLET PO PRN (10:40)
[2016-12-03] MEDS ORDERED: WARFARIN SODIUM 5MG TABLET PO SCH (18:00)
[2016-12-03 20:00] VITALS: BP 111/75
[2016-12-03] MEDS: ATORVASTATIN CALCIUM 20MG TABLET PO SCH (22:09)
[2016-12-04] MEDS: NYSTATIN POWDER 15GM TOP SCH ×3 (00:18→13:57)
[2016-12-04] MEDS: NITROGLYCERIN OINT 1GM/INCH UDPKT TD SCH ×3 (00:18→14:02)
[2016-12-04] MEDS: DILTIAZEM HCL 90MG TABLET PO SCH ×3 (01:14→14:02)
[2016-12-04] MEDS: ACETAMINOPHEN 325MG TABLET PO PRN (01:16)
[2016-12-04 06:18] LABS: INR 2.7; PROTHROMBIN TIME 27.6 sec
[2016-12-04] MEDS: BLOOD SUGAR DIAGNOSTIC STRIP TEST SCH ×2 (06:51→11:15)
[2016-12-04] MEDS: INSULIN LISPRO 100 UNITS/ML SUBCUT SCH ×2 (07:00→13:00)
[2016-12-04 08:00] VITALS: BP 131/86
[2016-12-04] MEDS: MEGESTROL ACETATE 400 MG/10 ML UDC PO SCH (08:53)
[2016-12-04] MEDS: POTASSIUM CHLORIDE 20MEQ TABLET SR PO SCH (08:54)
[2016-12-04] MEDS: FAMOTIDINE 20MG TABLET PO SCH (08:54)
[2016-12-04] MEDS: DONEPEZIL HCL 10MG TABLET PO SCH (08:54)
[2016-12-04] MEDS: FUROSEMIDE 40MG TABLET PO SCH (08:54)
[2016-12-04] MEDS: ASPIRIN 81MG EC TABLET PO SCH (08:55)
[2016-12-04] MEDS: CARVEDILOL 3.125 MG TABLET PO SCH (08:55)
[2016-12-04] MEDS ORDERED: COLCHICINE 0.6MG TABLET PO SCH (09:00)
[2016-12-04 12:42] VITALS: BP 131/86
== END 2016-12-04 15:30 | DRG 56 ==
PROVIDERS: ADMIT Psychiatry & Neurology Neurology; ATTEND Hospitalist
DX: I69.354 Hemiplegia and hemiparesis following cerebral infarction affecting left non-dominant side (principal); I63.9 Cerebral infarction, unspecified; G93.40 Encephalopathy, unspecified; I21.4 Non-ST elevation (NSTEMI) myocardial infarction; I50.23 Acute on chronic systolic (congestive) heart failure; J18.9 Pneumonia, unspecified organism; E87.2 Acidosis; I42.0 Dilated cardiomyopathy; I48.1 Persistent atrial fibrillation; J44.0 Chronic obstructive pulmonary disease with (acute) lower respiratory infection; N39.0 Urinary tract infection, site not specified; B96.20 Unspecified Escherichia coli [E. coli] as the cause of diseases classified elsewhere; E11.9 Type 2 diabetes mellitus without complications; E66.01 Morbid (severe) obesity due to excess calories; E78.5 Hyperlipidemia, unspecified; E83.42 Hypomagnesemia; G90.8 Other disorders of autonomic nervous system; I11.0 Hypertensive heart disease with heart failure; I25.10 Atherosclerotic heart disease of native coronary artery without angina pectoris; I48.2 Chronic atrial fibrillation; M85.80 Other specified disorders of bone density and structure, unspecified site; R32 Unspecified urinary incontinence; Z82.49 Family history of ischemic heart disease and other diseases of the circulatory system; Z68.37 Body mass index [BMI] 37.0-37.9, adult; Z79.899 Other long term (current) drug therapy; Z83.3 Family history of diabetes mellitus; Z85.3 Personal history of malignant neoplasm of breast; Z98.51 Tubal ligation status
CPT/HCPCS: 36415; 70450; 73600; 80053; 82140; 82962; 83735; 85025; 85610; 92523; 92610; 97163; 97167; 97530; 97535; J0692; J1815; J1940; J3490; J7060

== ENCOUNTER 2017-05-20 23:58 | Inpatient (IN) | payer MEDICARE, MEDICAID ==
[~2017-05-20] VITALS: Ht 157.5 cm; Wt 83.9 kg
[2017-05-21] VITALS (58 sets, daily range): BP systolic 80–164; BP diastolic 38–97
[2017-05-21] MEDS ORDERED: ONDANSETRON HCL 4MG/2ML VIAL IV STA (00:09)
[2017-05-21] MEDS ORDERED: SODIUM CHLORIDE 0.9% 1,000 ML IV ONE (00:09)
[2017-05-21] MEDS ORDERED: ETOMIDATE 2MG/ML 10ML VIAL IV ONE ×2 (00:15→06:00)
[2017-05-21] MEDS ORDERED: PROPOFOL 10MG/ML 100ML 100 ML IV ONE (00:15)
[2017-05-21] MEDS ORDERED: SUCCINYLCHOLINE CHLORIDE 200MG/10ML VIAL IV ONE ×2 (00:15→06:00)
[2017-05-21] MEDS ORDERED: LEVETIRACETAM 500MG PREMIX 100 ML IV ONE (00:15)
[2017-05-21 00:49] LABS: BASOPHILS % 0.8 % (0.0-2.0); EOSINOPHILS % 0.4 % (0.0-5.0); HEMATOCRIT. 47.2 % (36.0-48.0); HEMOGLOBIN. 15.8 g/dL (12.0-16.0); MEAN CORPUSCULAR HEMOGLOBIN 27.6 pg (28.0-32.0); MEAN CORPUSCULAR VOLUME 82.7 fL (81.0-99.0); MEAN PLATELET VOLUME 9.5 fl (7.4-10.4); MONOCYTES % 6.4 % (2.0-8.0); NEUTROPHILS % 49.4 % (40.0-76.0); PLATELET 157 x1000/uL (130-400); RED BLOOD CELL COUNT 5.71 mill/uL (4.2-5.4); RED CELL DISTRIBUTION WIDTH 16.3 % (11.6-14.6)
[2017-05-21 00:56] LABS: INR 1.2; PROTHROMBIN TIME 12.8 sec (9.4-11.6)
[2017-05-21 01:08] LABS: CARBON DIOXIDE 23 mEq/L (21-32); CHLORIDE 98 mEq/L (98-107); TROPONIN I 0.03 ng/mL (0.00-0.04)
[2017-05-21] MEDS ORDERED: LORAZEPAM 2MG/ML CPJ IV PRN ×2 (05:45→13:45)
[2017-05-21] MEDS ORDERED: PROPOFOL 10MG/ML 100ML 100 ML IV PRN ×2 (05:45→09:45)
[2017-05-21] MEDS: DEXT 5%/0.9% NACL 1,000 ML IV SCH ×2 (06:01→18:21)
[2017-05-21 06:03] LABS: BG BASE EXCESS -6.2 mmol/L (-2.0-2.0); BG DEOXYHEMOGLOBIN 0.3 % (0.0-5.0); BG FRACTION INSPIRED OXYGEN 100; BG HCO3 ACT 15.4 mmol/L (22.0-26.0); BG METHEMOGLOBIN 0.1 % (0.0-1.5); BG OXYGEN SATURATION 99.7 % (92.0-98.5); BG OXYHEMOGLOBIN 98.6 % (94.0-97.0); BG PCO2 22.1 mmHg (35.0-45.0); BG PO2 433.9 mmHg (75.0-100.0); BG SAMPLE SITE LEFT RADIAL; BG TIDAL VOLUME(mL) 550 mL; BG TOTAL HEMOGLOBIN 14.2 g/dL (12.0-18.0); BG VENT MODE VENT - A/C; BG VENT RATE 14 set
[2017-05-21] MEDS ORDERED: POTASSIUM CHLORIDE INJ 40 MEQ in DEXT 5% WATER 250 ML IV ONE (07:00)
[2017-05-21 07:37] LABS: BG BASE EXCESS -4.3 mmol/L (-2.0-2.0); BG CARBOXYHEMOGLOBIN 1.1 % (0.5-1.5); BG DEOXYHEMOGLOBIN 0.2 % (0.0-5.0); BG HCO3 ACT 18.3 mmol/L (22.0-26.0); BG OXYGEN SATURATION 99.8 % (92.0-98.5); BG OXYHEMOGLOBIN 98.7 % (94.0-97.0); BG PCO2 27.5 mmHg (35.0-45.0); BG PO2 240.7 mmHg (75.0-100.0); BG SAMPLE SITE RIGHT RADIAL; BG TIDAL VOLUME(mL) 550 mL; BG TOTAL HEMOGLOBIN 14.4 g/dL (12.0-18.0); BG VENT MODE VENT - A/C; BG VENT RATE 12 set
[2017-05-21 07:42] LABS: CHLORIDE 100 mEq/L (98-107)
[2017-05-21 07:47] LABS: BASOPHILS % 0.1 % (0.0-2.0); HEMATOCRIT. 50.9 % (36.0-48.0); HEMOGLOBIN. 16.6 g/dL (12.0-16.0); LYMPHOCYTES % 10.4 % (20.0-50.0); MEAN CORPUSCULAR HEMOGLOBIN 27.5 pg (28.0-32.0); MEAN CORPUSCULAR VOLUME 84.4 fL (81.0-99.0); MONOCYTES % 6.6 % (2.0-8.0); NEUTROPHILS % 82.9 % (40.0-76.0); RED BLOOD CELL COUNT 6.03 mill/uL (4.2-5.4); RED CELL DISTRIBUTION WIDTH 16.9 % (11.6-14.6)
[2017-05-21 07:48] LABS: CARBON DIOXIDE 20 mEq/L (21-32)
[2017-05-21 07:53] LABS: GLUCOSE URINE NEGATIVE (NEGATIVE); KETONES URINE NEGATIVE (NEGATIVE); LEUKOCYTE ESTERASE URINE 3+ (NEGATIVE); NITRITE URINE NEGATIVE (NEGATIVE); OCCULT BLOOD URINE 3+ (NEGATIVE); PROTEIN URINE 2+ (NEGATIVE); SPECIFIC GRAVITY URINE 1.006 (1.005-1.030); UROBILINOGEN URINE 0.2 E.U./dL (0.2-1.0)
[2017-05-21 07:58] LABS: CLARITY URINE CLOUDY (CLEAR); COLOR URINE YELLOW (YELLOW)
[2017-05-21] MEDS ORDERED: IPRATROPIUM/ALBUTEROL 0.5-3(2.5)MG/3ML NEB HHN PRN (08:00)
[2017-05-21 08:47] LABS: PHOSPHORUS 3.4 mg/dL (2.5-4.9)
[2017-05-21] MEDS ORDERED: ENOXAPARIN 30MG/0.3ML SYR SUBCUT SCH (09:00)
[2017-05-21] MEDS ORDERED: KCL 20MEQ/100ML PREMIX 100 ML IV ONE (09:15)
[2017-05-21] MEDS: PANTOPRAZOLE SODIUM 40 MG/VIAL IV SCH (09:49)
[2017-05-21] MEDS ORDERED: FUROSEMIDE 20MG/2ML VIAL IVP NR (10:45)
[2017-05-21] MEDS ORDERED: MAGNESIUM 2 G PREMIX 50 ML IV NR (11:00)
[2017-05-21] MEDS ORDERED: LEVOFLOXACIN 500MG PREMIX 100 ML IV SCH (11:00)
[2017-05-21] MEDS ORDERED: VANCOMYCIN 1500MG in DEXTROSE 5% WATER 250ML IV NR (12:00)
[2017-05-21] MEDS ORDERED: IPRATROPIUM/ALBUTEROL 0.5-3(2.5)MG/3ML NEB HHN SCH (12:00)
[2017-05-21] MEDS: PIPERACILLIN/TAZ 3.375G PREMIX 50 ML IV SCH ×2 (13:40→18:22)
[2017-05-21 14:47] LABS: *AMPHETAMINES SCREEN URINE NEGATIVE (NEGATIVE); *BARBITURATES SCREEN URINE NEGATIVE (NEGATIVE); *BENZODIAZEPINES SCREEN URINE PRESUMTIVE POSITIVE (NEGATIVE); *COCAINE SCREEN URINE NEGATIVE (NEGATIVE); CANNABINOID URINE SCREEN NEGATIVE (NEGATIVE); METHADONE URINE SCREEN NEGATIVE (NEGATIVE); OPIATES URINE SCREEN NEGATIVE (NEGATIVE); PHENCYCLIDINE URINE SCREEN NEGATIVE (NEGATIVE)
[2017-05-21] MEDS: IPRATROPIUM/ALBUTEROL 0.5-3(2.5)MG/3ML NEB HHN SCH ×2 (16:25→19:55)
[2017-05-21] MEDS ORDERED: SODIUM CHLORIDE 0.9% 250 ML IV NR ×2 (18:00→18:36)
[2017-05-21] MEDS: ENOXAPARIN 80MG/0.8ML SYR SUBCUT SCH (18:22)
[2017-05-22] VITALS (27 sets, daily range): BP systolic 30–186; BP diastolic 15–128
[2017-05-22] MEDS: IPRATROPIUM/ALBUTEROL 0.5-3(2.5)MG/3ML NEB HHN SCH ×3 (00:32→19:54)
[2017-05-22] MEDS: ENOXAPARIN 80MG/0.8ML SYR SUBCUT SCH ×2 (05:09→18:39)
[2017-05-22] MEDS: VANCOMYCIN 750 MG PREMIX 150 ML IV SCH ×2 (05:10→23:37)
[2017-05-22] MEDS: PIPERACILLIN/TAZ 3.375G PREMIX 50 ML IV SCH ×5 (05:10→23:37)
[2017-05-22 06:22] LABS: BASOPHILS % 0.1 % (0.0-2.0); HEMATOCRIT. 33.3 % (36.0-48.0); HEMOGLOBIN. 10.7 g/dL (12.0-16.0); MEAN CORPUSCULAR HEMOGLOBIN 27.5 pg (28.0-32.0); MEAN CORPUSCULAR VOLUME 85.3 fL (81.0-99.0); MEAN PLATELET VOLUME 9.8 fl (7.4-10.4); MONOCYTES % 5.9 % (2.0-8.0); PLATELET 129 x1000/uL (130-400); RED BLOOD CELL COUNT 3.91 mill/uL (4.2-5.4); RED CELL DISTRIBUTION WIDTH 16.7 % (11.6-14.6)
[2017-05-22 06:54] LABS: CARBON DIOXIDE 12 mEq/L (21-32); CHLORIDE 110 mEq/L (98-107); CREATINE KINASE 194 IU/L (26-192); CREATINE KINASE MB FRACTION 3.1 ng/mL (0.5-3.6); HDL CHOLESTEROL 22 mg/dL (40-59); LDL CHOLESTEROL 81 mg/dL (5-100)
[2017-05-22 08:15] LABS: TROPONIN I 0.75 ng/mL (0.00-0.04)
[2017-05-22] MEDS: PANTOPRAZOLE SODIUM 40 MG/VIAL IV SCH (08:22)
[2017-05-22] MEDS: DEXT 5%/0.9% NACL 1,000 ML IV SCH ×2 (08:22→22:33)
[2017-05-22 09:29] LABS: BG BASE EXCESS -16.9 mmol/L (-2.0-2.0); BG CARBOXYHEMOGLOBIN 1.1 % (0.5-1.5); BG DEOXYHEMOGLOBIN 0.4 % (0.0-5.0); BG FRACTION INSPIRED OXYGEN 40; BG HCO3 ACT 6.2 mmol/L (22.0-26.0); BG METHEMOGLOBIN 0.3 % (0.0-1.5); BG OXYGEN SATURATION 99.6 % (92.0-98.5); BG OXYHEMOGLOBIN 98.2 % (94.0-97.0); BG PCO2 12.2 mmHg (35.0-45.0); BG PH 7.323 (7.350-7.450); BG PO2 217.2 mmHg (75.0-100.0); BG SAMPLE SITE RIGHT BRACHIAL; BG TIDAL VOLUME(mL) 550 mL; BG TOTAL HEMOGLOBIN 12.8 g/dL (12.0-18.0); BG VENT MODE VENT - A/C; BG VENT RATE 12 set
[2017-05-22] MEDS ORDERED: POTASSIUM CHLORIDE IV SCH (09:30)
[2017-05-22] MEDS ORDERED: SODIUM CHLORIDE 0.9% IV SCH (09:30)
[2017-05-22] MEDS: MORPHINE SULFATE 4 MG/ML CPJ (NOT FOR IM USE) IV PRN ×2 (10:23→15:06)
[2017-05-23 01:03] VITALS: BP 76/26
[2017-05-23] MEDS: IPRATROPIUM/ALBUTEROL 0.5-3(2.5)MG/3ML NEB HHN SCH ×3 (01:21→11:40)
[2017-05-23] MEDS ORDERED: EPINEPHRINE 0.1MG/ML (1:10,000) 10ML SYR ONE (05:00)
[2017-05-23] MEDS: PIPERACILLIN/TAZ 3.375G PREMIX 50 ML IV SCH ×2 (05:35→12:19)
[2017-05-23] MEDS: ENOXAPARIN 80MG/0.8ML SYR SUBCUT SCH (05:35)
[2017-05-23] MEDS: PANTOPRAZOLE SODIUM 40 MG/VIAL IV SCH (08:28)
[2017-05-23 09:52] VITALS: BP 87/18
[2017-05-23 10:01] VITALS: BP 80/19
[2017-05-23 11:04] LABS: BG BASE EXCESS -22.7 mmol/L (-2.0-2.0); BG CARBOXYHEMOGLOBIN 0.3 % (0.5-1.5); BG DEOXYHEMOGLOBIN 1.3 % (0.0-5.0); BG FRACTION INSPIRED OXYGEN 40; BG HCO3 ACT 3.6 mmol/L (22.0-26.0); BG METHEMOGLOBIN 0.3 % (0.0-1.5); BG OXYGEN SATURATION 98.7 % (92.0-98.5); BG OXYHEMOGLOBIN 98.1 % (94.0-97.0); BG PCO2 10.4 mmHg (35.0-45.0); BG PH 7.156 (7.350-7.450); BG PO2 159.8 mmHg (75.0-100.0); BG SAMPLE SITE LEFT BRACHIAL; BG TIDAL VOLUME(mL) 550 mL; BG TOTAL HEMOGLOBIN 11.4 g/dL (12.0-18.0); BG VENT MODE VENT - A/C; BG VENT RATE 12 set
[2017-05-23 12:15] VITALS: BP 42/18
[2017-05-23] MEDS: DEXT 5%/0.9% NACL 1,000 ML IV SCH (12:20)
[2017-05-23] MEDS ORDERED: NAFCILLIN SODIUM IV SCH (18:00)
[2017-05-23] MEDS ORDERED: SODIUM CHLORIDE 0.9% IV SCH (18:00)
== END 2017-05-23 13:20 | disposition expired | DRG 871 ==
LOC: ER 23:58 → EDBEDREQTM 05-21 01:25 → EDBEDREQ 05-21 01:25 → ENRESERV 05-21 01:40 → CVICU 05-21 02:18
PROVIDERS: ADMIT Hospitalist; ATTEND Hospitalist
PROC: 0BH17EZ Insertion of Endotracheal Airway into Trachea, Via Natural or Artificial Opening (ICD-10-PCS; principal; 2017-05-21)
PROC: 5A1945Z Respiratory Ventilation, 24-96 Consecutive Hours (ICD-10-PCS; 2017-05-21)
PROC: 02HV33Z Insertion of Infusion Device into Superior Vena Cava, Percutaneous Approach (ICD-10-PCS; 2017-05-21)
PROC: B548ZZA Ultrasonography of Superior Vena Cava, Guidance (ICD-10-PCS; 2017-05-21)
DX: A41.9 Sepsis, unspecified organism (principal); J96.00 Acute respiratory failure, unspecified whether with hypoxia or hypercapnia; I46.9 Cardiac arrest, cause unspecified; E43 Unspecified severe protein-calorie malnutrition; G93.40 Encephalopathy, unspecified; I95.9 Hypotension, unspecified; I42.0 Dilated cardiomyopathy; G40.89 Other seizures; I11.9 Hypertensive heart disease without heart failure; N39.0 Urinary tract infection, site not specified; J44.9 Chronic obstructive pulmonary disease, unspecified; Z51.5 Encounter for palliative care; Z66 Do not resuscitate; E83.42 Hypomagnesemia; I48.2 Chronic atrial fibrillation; E11.9 Type 2 diabetes mellitus without complications; E87.6 Hypokalemia; I25.10 Atherosclerotic heart disease of native coronary artery without angina pectoris; I25.5 Ischemic cardiomyopathy; Z85.3 Personal history of malignant neoplasm of breast; Z68.33 Body mass index [BMI] 33.0-33.9, adult; I25.2 Old myocardial infarction; Z86.73 Personal history of transient ischemic attack (TIA), and cerebral infarction without residual deficits
CPT/HCPCS: 31500; 36415; 36569; 36600; 70450; 70551; 71010; 76937; 80048; 80053; 80061; 80305; 81001; 82375; 82550; 82553; 82805; 82962; 83605; 83735; 83880; 84100; 84443; 84484; 85025; 85610; 86850; 86900; 87070; 87077; 87086; 93005; 93970; 94002; 94003; 94640; 94664; 96365; 96375; 99291; C1725; C9113; J0171; J0330; J1650; J1940; J1953; J1956; J2060; J2270; J2405; J2543; J2704; J3370; J3475; J3480; J3490; J7030; J7042; J7050; J7060; J7620; A4315